=== PATIENT | male | born 1995 | race Caucasian/White ===

== ENCOUNTER 2016-07-27 23:28 | Emergency (ER) | payer BC ==
[~2016-07-27] VITALS: Ht 180.3 cm; Wt 100.0 kg
[~2016-07-27 23:28] MED LIST: AMOXICILLIN 50500 MG PO; BACTRIM DS 8001 TAB PO; CETIRIZINE; CLARITIN D TAB1 TAB PO; FLAGYL500 MG PO; MIRALAX 17GM PK1 PKT PO; PERCOCET 325 MG1 TA2 PO; ZYRTEC-D 5 MG-11 TER PO; ZYRTEC10 M1 PO
[2016-07-27 23:30] VITALS: TEMP 99.3
[2016-07-28] MEDS ORDERED: PREDNISONE20 MG PO (00:35)
[2016-07-28 00:42] VITALS: BP 120/67; PULSE 86
== END 2016-07-28 00:43 | disposition home or self-care (01) ==
LOC: COL.ER 23:28
DX: J03.90 Acute tonsillitis, unspecified (principal)
CPT/HCPCS: J7512

== ENCOUNTER 2017-07-16 00:33 | Emergency (ER) | payer BC ==
[~2017-07-16] VITALS: Ht 180.3 cm; Wt 100.0 kg
[~2017-07-16 00:33] MED LIST changes: +PREDNISONE20 MG PO
[2017-07-16 00:35] VITALS: BP 105/59; PULSE 121; TEMP 100.9
[2017-07-16] MEDS ORDERED: PEN-VEE K500 MG PO (01:58)
== END 2017-07-16 02:05 | disposition home or self-care (01) ==
LOC: COL.ER 00:33
DX: J03.90 Acute tonsillitis, unspecified (principal)
CPT/HCPCS: J1100